=== PATIENT | male | born 1955 | race Caucasian/White ===

== ENCOUNTER 2016-03-19 18:12 | Outpatient (CLI) | payer OTHER | END 2016-03-19 18:13 | disposition home or self-care (01) | DX: M79.652 Pain in left thigh (principal); M79.661 Pain in right lower leg ==

== ENCOUNTER 2017-09-27 07:28 | Outpatient (CLI) | payer OTHER ==
--- NOTE | 2017-09-27 08:41 | CT Report ---
Procedure Date: 09/27/2017 Accession Number: [id number] / [id number] Procedure: CT - Chest/Lung Screen Low Dose W/O CPT Code: FULL RESULT: EXAM CT LUNG SCREEN EXAM DATE: 09/27/2017 8:19 AM. HISTORY: 62 [id number] patient with [id number] smoking history. Currently smoking: Yes. COMPARISON: None.. TECHNIQUE: CT examination of the entire thorax without contrast was performed using low-dose technique. Thin section coronal, axial, sagittal and MIP axial images were obtained. In accordance with CT protocol optimization, one or more of the following dose reduction techniques were utilized for this exam: automated exposure control, adjustment of mA and/or KV based on patient size, or use of iterative reconstructive technique. FINDINGS: Nodules: Right upper lobe: None. Right middle lobe: None. Right lower lobe: None. Left upper lobe: 2 mm, image 96. Left lower lobe: None. Emphysema: Upper lobe predominant paraseptal and centrilobular types. Pleura: Unremarkable. Aorta: Atherosclerotic. Mediastinum: None. Coronary calcifications: None. Other pulmonary findings: Right lower lobe scar. Other extrapulmonary findings: None. IMPRESSION: Lung-RADS ASSESSMENT CATEGORY: 2 - Nodules with a very low likelyhood of becoming a clinically active cancer due to size or lack of growth. RECOMMENDATION: Continue annual screening with low-dose CT in 12 months. RADIA
== END 2017-09-27 07:29 | disposition home or self-care (01) ==
LOC: DI 07:28
PROVIDERS: ATTEND Physician Assistant
DX: Z12.2 Encounter for screening for malignant neoplasm of respiratory organs (principal); R91.8 Other nonspecific abnormal finding of lung field; F17.210 Nicotine dependence, cigarettes, uncomplicated; I70.0 Atherosclerosis of aorta; Z82.49 Family history of ischemic heart disease and other diseases of the circulatory system
CPT/HCPCS: 76706; G0297

== ENCOUNTER 2017-09-27 07:32 | Outpatient (CLI) | payer OTHER ==
--- NOTE | 2017-09-27 08:16 | Ultrasound Report ---
Procedure Date: 09/27/2017 Accession Number: [id number] / [id number] Procedure: US - Aorta Screening CPT Code: FULL RESULT: EXAM: Aorta Screening DATE: 09/27/2017 8:03 AM CLINICAL HISTORY: 62-year-old male with a 75 pack-year smoking history who is an ongoing smoker. COMPARISON: None. TECHNIQUE: Real-time sonographic imaging of retroperitoneal vascular structures, including color-flow, was performed by the ticker installer. Multiple outside dealer sales representative static images were saved for review. FINDINGS: Aorta: The abdominal aorta was adequately visualized. No evidence for abdominal aortic aneurysm. The aorta has an irregular wall with atherosclerotic changes throughout. The aorta measures up to 2.4 cm in sagittal plane in the proximal abdominal portion, 2.0 x 2.6 cm in transverse in the midabdomen and 1.9 x 2.3 cm in the distal abdomen. Iliac Vessels: The right common iliac artery measures 1.1 x 1.2 cm in transverse plane in the left common iliac artery measures 0.9 x 0.9 cm in transverse plane. Other: None. IMPRESSION: Extensive abdominal atherosclerosis without evidence of aneurysm. RADIA
== END 2017-09-27 07:33 | disposition home or self-care (01) ==
LOC: DI 07:32
PROVIDERS: ATTEND Physician Assistant
DX: I70.0 Atherosclerosis of aorta (principal); Z82.49 Family history of ischemic heart disease and other diseases of the circulatory system
CPT/HCPCS: 76706

== ENCOUNTER 2018-10-04 16:17 | Outpatient (CLI) | payer OTHER ==
--- NOTE | 2018-10-05 13:04 | XRAY Report ---
Reason: OTHER SPECIFIED DISORDER TENDON,RT SHOULDER Procedure Date: 10/04/2018 Accession Number: [id number] / [id number] Procedure: XR - Shoulder 3 View RT CPT Code: FULL RESULT: EXAM: RIGHT SHOULDER RADIOGRAPHY EXAM DATE: 10/04/2018 04:37 PM. CLINICAL HISTORY: Worsening shoulder pain after injury for 3 months COMPARISON: None. TECHNIQUE: 3 views. FINDINGS: Bones: Normal. No fracture or bone lesion. Joints: Normal alignment of the glenohumeral and acromioclavicular joints. Mild glenohumeral and moderate acromioclavicular joint space narrowing with osteophytes. Soft tissues: The visualized hemithorax is unremarkable. No soft tissue swelling. IMPRESSION: 1. Normal alignment of the right shoulder without fracture or dislocation. 2. Moderate acromioclavicular mild glenohumeral degenerative arthritis. RADIA
== END 2018-10-04 16:18 | disposition home or self-care (01) ==
LOC: DI 16:17
PROVIDERS: ATTEND Physician Assistant
DX: M19.011 Primary osteoarthritis, right shoulder (principal)

== ENCOUNTER 2019-01-19 22:27 | Emergency (ER) | payer OTHER ==
--- NOTE | 2019-01-19 22:35 | ED Physician Documentation ---
PD HPI CHEST PAIN - Stated complaint Stated Complaint: CP,SOA - Chief complaint Chief Complaint: Cardiac - History obtained from History obtained from: Patient - History of Present Illness Timing - onset: Today Timing - onset during: Light activity Timing - duration: Hours (1-2) Timing - details: Abrupt onset Quality: Other ("Uncomfortable") Location: Substernal Improved by: Rest Associated symptoms: Diaphoresis, Feeling faint / dizzy. No: Shortness of air, Nausea, Vomiting, Palpitations, Cough Similar symptoms before: Work up / diagnostics (20 years ago) Recently seen: Not recently seen - Additional information Additional information: This is a 63-year-old man who presents with complaints that he got up around noon today get ready and just to enjoy the day.He took a shower and as he was toweling off he just felt really faint so he sat down on the toilet for a couple minutes then he was not really feeling any better so he went and laid down on the bed. After a while the symptoms resolved and he got up and started getting ready again but he pretty much immediately had laid back down. He said it took him a couple hours for things to kind of pass in him to be able to get up and get on with his day. He is continued to feel very fatigued and short of breath since that time and he just feels "off". He reports an uncomfortable sensation in the chest area that he is related to anxiety. 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 While the symptoms were going on this morning he did get kind of sweaty but he did not feel dizzy. Denied headache or nausea. No chest pain or palpitations. Did not feel short of breath at the time for have any vomiting. There were not visual changes and he had no numbness or tingling into the arms or legs. He said about 20 years ago he had a similar episode where he was standing waiting at a counter for them to make a sandwich and he just blacked out. That time he was worked up even had an angiogram showed minimal blockages. He has been told that he has calcifications in his aorta but no aneurysm. 2 days ago he had some lower abdominal "burning" type pain in the suprapubic and left lower abdomen. Did not really ever have any diarrhea and it has resolved. He did eat some [place]uv[place] prior to the onset of those symptoms. Patient did not eat anything this morning which is not unusual for him. He did eat something around 7:00 tonight. Denies dysuria. He is a smoker but denies use of alcohol. Does take a thyroid supplement and cholesterol medicine. No blood pressure medications in fact states that his blood pressure typically runs on the lower side in the low to mid 100s systolic.He is here with his daughter. Family history is significant for heart stents in the brother and sister. His father had a stroke. Review of Systems Constitutional: denies: Fever Eyes: denies: Loss of vision Ears: denies: Loss of hearing Nose: denies: Congestion Throat: denies: Sore throat Cardiac: reports: Chest pain / pressure. denies: Palpitations Respiratory: reports: Dyspnea. denies: Cough GI: reports: Abdominal Pain. denies: Nausea, Vomiting, Diarrhea : denies: Dysuria Musculoskeletal: denies: Neck pain, Back pain Neurologic: reports: Generalized weakness, Near syncope. denies: Focal weakness, Syncope, Confused, Altered mental status, Headache Psychiatric: reports: Anxiety Endocrine: reports: Other (Patient does take a thyroid supplement). denies: Polyuria PD PAST MEDICAL HISTORY - Past Medical History Cardiovascular: None Respiratory: None Endocrine/Autoimmune: HyPOthyroidism GI: GERD : None HEENT: None Psych: None Musculoskeletal: None Derm: None - Past Surgical History Past Surgical History: Yes General: Appendectomy Ortho: Arthroscopic surgery, Other HEENT: Tonsil/Adenoidectomy - Present Medications Home Medications: Ambulatory Orders Medication Instructions Recorded Confirmed Citalopram [CeleXA] 10 mg ORAL DAILY 01/02/14 11/12/14 Levothyroxine [Synthroid] 75 mcg PO QDAC 06/12/14 11/12/14 - Allergies Allergies/Adverse Reactions: Allergies Allergy/AdvReac Type Severity Reaction Status Date / Time No Known Drug Allergies Allergy Verified 11/08/14 10:24 - Social History Does the pt smoke?: Yes Smoking Status: Current every day smoker Does the pt drink ETOH?: No Does the pt have substance abuse?: No - Immunizations Immunizations are current?: No PD ED PE NORMAL - Vitals Vital signs reviewed: Yes - General General: Alert and oriented X 3, No acute distress, Well developed/nourished, Other (Thin 63-year-old man who is in no acute distress) - HEENT HEENT: Atraumatic, PERRL, Moist mucous membranes, Pharynx benign (Status post tonsillectomy) - Neck Neck: Supple, no meningeal sign, No adenopathy, Thyroid normal, No JVD - Cardiac Cardiac: RRR, No murmur, No gallop, No rub, Strong equal pulses - Respiratory Respiratory: No respiratory distress, Clear bilaterally - Abdomen Abdomen: Normal bowel sounds, Soft, Non tender, Non distended, No organomegaly, Other (No abdominal bruit. No palpable pulsatile mass in the abdomen and femoral pulses are symmetrical.) - Derm Derm: Normal color, Warm and dry, No rash - Extremities Extremities: No edema - Neuro Neuro: Alert and oriented X 3, No motor deficit, No sensory deficit, Normal speech - Psych Psych: Normal mood, Normal affect Results - Vitals Vitals: Vital Signs - 24 hr 01/19/19 01/19/19 01/20/19 22:31 23:21 00:40 Temperature 36.3 C L Heart Rate 66 84 64 Respiratory 18 20 17 Rate Blood Pressure 144/87 H 124/76 129/90 H O2 Saturation 98 96 99 01/20/19 01/20/19 01:30 03:10 Temperature 36.4 C L Heart Rate 63 64 Respiratory 15 16 Rate Blood Pressure 138/94 H 129/91 H O2 Saturation 98 99 Oxygen O2 Source Room air - EKG (time done) 2234 Rate: Rate (enter#) (60) Rhythm: NSR Intervals: Normal CO. No: Wide QRS Ischemia: Non specific changes Compare to prior EKG: Old EKG unavailable 0232 Rate: Rate (enter#) (60) Rhythm: NSR, Other (PACs) Intervals: Normal CO. No: Wide QRS Ischemia: Non specific changes Compare to prior EKG: Unchanged from prior EKG (tonight) - Labs Labs: Laboratory Tests 01/19/19 01/19/19 01/19/19 21:41 21:41 21:41 WBC 8.5 RBC 5.14 Hgb 16.1 Hct 47.8 MCV 93.0 MCH 31.3 H MCHC 33.7 RDW 13.4 Plt Count 249 MPV 10.0 Neut # (Auto) 4.6 Lymph # (Auto) 2.8 [place] # (Auto) 0.8 Eos # (Auto) 0.2 Baso # (Auto) 0.1 Absolute Nucleated RBC 0.00 Nucleated RBC % 0.0 Sodium 142 Potassium 3.4 L Chloride 107 Carbon Dioxide 29 Anion Gap 6.0 BUN 19 Creatinine 0.8 Estimated GFR (MDRD) 98 Glucose 97 Calcium 9.0 Total Bilirubin 0.8 AST 20 ALT 23 Alkaline Phosphatase 52 Troponin I High Sens < 2.3 L Total Protein 7.3 Albumin 4.0 Globulin 3.3 Albumin/Globulin Ratio 1.2 Lipase 30 01/20/19 01:31 WBC RBC Hgb Hct MCV MCH MCHC RDW Plt Count MPV Neut # (Auto) Lymph # (Auto) [place] # (Auto) Eos # (Auto) Baso # (Auto) Absolute Nucleated RBC Nucleated RBC % Sodium Potassium Chloride Carbon Dioxide Anion Gap BUN Creatinine Estimated GFR (MDRD) Glucose Calcium Total Bilirubin AST ALT Alkaline Phosphatase Troponin I High Sens 3.1 Total Protein Albumin Globulin Albumin/Globulin Ratio Lipase - Rads (name of study) CXR Radiology: EMP read contemporaneously (Neg acute), See rad report PD MEDICAL DECISION MAKING - ED course Complexity details: reviewed results, re-evaluated patient, d/w patient ED course: The patient's EKG does not have acute ischemic changes. The initial troponin is normal. Other labs essentially normal. 1 view chest is clear. Results were discussed with the patient and I requested that he stay for a 3-hour troponin since he was having some chest discomfort even as we were talking in gathering history. He really wants to go out and smoke a cigarette which I have declined permission for him to do. He was offered something to help with his anxiety but he has declined that. Plan for discharge and outpatient follow-up if the 3- hour troponin is normal. The repeat troponin was 3.1. Patient will be discharged with outpatient follow-up. His repeat EKG does not show any acute changes. Departure - Departure Disposition: 01 Home, Self Care Clinical Impression: Atypical chest pain, Near syncope Condition: Good Instructions: ED Chest Pain Atypical Unkn Cause, ED Near Syncope Unkn Follow-Up: Lisa Doll PA [Primary Care Provider] - Comments: Avoid strenuous activity for the weekend. Make sure that you are drinking plenty of water. If you experience this again I would recommend that you check your pulse rate and if you have access to a blood pressure monitor to get a blood pressure reading. Return to the emergency department immediately if you pass out, have chest pain especially if it is associated with shortness of breath, sweatiness or nausea and vomiting. Follow-up with your primary care provider for reevaluation if you experience the symptoms again. Discharge Date/Time: 01/20/19 03:17
[2019-01-19 22:44] LABS: BASOPHILS # (AUTO) 0.1 10^3/uL (0.0-0.1); BASOPHILS % (AUTO) 1.1 %; EOSINOPHILS # (AUTO) 0.2 10^3/uL (0.0-0.7); EOSINOPHILS % (AUTO) 1.8 %; HGB - HEMOGLOBIN 16.1 g/dL (14.0-18.0); LYMPHOCYTES # (AUTO) 2.8 10^3/uL (1.5-3.5); LYMPHOCYTES % (AUTO) 32.8 %; MEAN CORPUSCULAR HEMOGLOBIN 31.3 pg (27.0-31.0); MEAN CORPUSCULAR HGB CONC 33.7 g/dL (32.0-36.0); MONOCYTES # (AUTO) 0.8 10^3/uL (0.0-1.0); MONOCYTES % (AUTO) 9.6 %; NEUTROPHILS # (AUTO) 4.6 10^3/uL (1.5-6.6); NEUTROPHILS % (AUTO) 54.5 %; PLT - PLATELET COUNT 249 10^3/uL (130-450); RED BLOOD COUNT 5.14 10^6/uL (4.70-6.10); RED CELL DISTRIBUTION WIDTH 13.4 % (12.0-15.0); WHITE BLOOD COUNT 8.5 x10^3/uL (4.8-10.8)
[2019-01-19 23:02] LABS: ALBUMIN/GLOBULIN RATIO 1.2 (1.0-2.2); BILIRUBIN,TOTAL 0.8 mg/dL (0.2-1.0); CREATININE 0.8 mg/dL (0.6-1.2); TOTAL PROTEIN 7.3 g/dL (6.7-8.2)
[2019-01-19] MEDS ORDERED: ASPIRIN CHEW 81 MG TABLET PO STA (23:11)
--- NOTE | 2019-01-19 23:37 | XRAY Report ---
Reason: chest pain Procedure Date: 01/19/2019 Accession Number: [id number] / [id number] Procedure: XR - Chest 1 View X-Ray CPT Code: 36340 Final Report FULL RESULT: EXAM: CHEST RADIOGRAPHY EXAM DATE: 01/19/2019 11:17 PM. CLINICAL HISTORY: Chest pain. COMPARISON: CHEST 2 VIEW PA/LAT 01/02/2014 7:17 PM CHEST SCREEN LOW DOSE W/O 09/27/2017 8:18 AM. TECHNIQUE: 1 view. FINDINGS: Atherosclerotic plaque calcifications are seen in the aorta. The mediastinal and cardiac silhouettes are normal. The lungs are free of focal consolidation. There is no pleural effusion or pneumothorax. A lower thoracic levoscoliosis and compensatory thoracolumbar dextroscoliosis are seen. IMPRESSION: No focal consolidation. RADIA
[2019-01-20 03:16] VITALS: BP 129/91
== END 2019-01-20 03:17 | disposition home or self-care (01) ==
LOC: ED 22:27
DX: R07.89 Other chest pain (principal); R55 Syncope and collapse; E03.9 Hypothyroidism, unspecified; F41.9 Anxiety disorder, unspecified; F17.210 Nicotine dependence, cigarettes, uncomplicated
CPT/HCPCS: 36415; 71045; 80053; 83690; 84484; 85025; 93005; 99284; A9270

== ENCOUNTER 2019-03-26 14:03 | Outpatient (CLI) | payer OTHER ==
--- NOTE | 2019-03-27 14:05 | XRAY Report ---
Reason: M54.5 LOW BACK PAIN Procedure Date: 03/26/2019 Accession Number: [id number] / [id number] Procedure: XRS - Lumbar Spine 2 View CPT Code: Final Report FULL RESULT: EXAM: LUMBOSACRAL SPINE RADIOGRAPHY EXAM DATE: 03/26/2019 02:29 PM. CLINICAL HISTORY: M54. 5 LOW BACK PAIN. COMPARISONS: 06/12/2010 8:57 AM. TECHNIQUE: 3 views. FINDINGS: Alignment: Dextroscoliosis of the upper lumbar spine. Grade 1 left lateral listhesis of L1 on L2. Bones: Five [id number]-[id number] lumbar vertebral bodies are present. No fractures or bone lesions. Disks: Moderate degenerative disk disease at L1-L2, L2-L3 and L5-S1. Facets: No degenerative changes. Sacroiliac Joints: Unremarkable. Soft Tissues: Normal. The visualized bowel gas pattern is normal. IMPRESSION: 1. Dextroscoliosis of the upper lumbar spine. Grade 1 left lateral listhesis of L1 on L2. 2. Moderate degenerative disk disease at L1-L2, L2-L3 and L5-S1. RADIA
== END 2019-03-26 14:04 | disposition home or self-care (01) ==
LOC: DI.S 14:03
PROVIDERS: ATTEND Registered Nurse
DX: M51.36 Other intervertebral disc degeneration, lumbar region (principal); M51.37 Other intervertebral disc degeneration, lumbosacral region; M41.9 Scoliosis, unspecified; M43.16 Spondylolisthesis, lumbar region
CPT/HCPCS: 72100

== ENCOUNTER 2020-05-27 08:35 | Outpatient (CLI) | payer MEDICARE ==
--- NOTE | 2020-05-27 16:41 | CT Report ---
PROCEDURE: Low Dose Lung Cancer Screen INDICATIONS: CURRENT SMOKER TECHNIQUE: Noncontrast low-dose 5 mm thick sections acquired from the pulmonary apices to the posterior costophr enic angles. 7 mm thick coronal and sagittal MIP reformats were then acquired. For radiation dose r eduction, the following was used: automated exposure control, adjustment of mA and/or kV according t o patient size. COMPARISON: None. FINDINGS: Image quality: Excellent. Lungs and pleura: Mediastinum: Heart size is normal. There is mild coronary artery calcification centrally. No perica rdial effusion. No mediastinal adenopathy by size criteria. Thoracic aorta and central pulmonary ar teries are normal in size. Esophagus is normal in caliber. No hiatal hernia. Bones and chest wall: No suspicious bony lesions. No vertebral body compression fractures. No axil isabelle or supraclavicular adenopathy by size criteria. The thyroid is normal in size. Abdomen: Visualized upper abdomen solid organs and bowel loops appear normal in the absence of contr ast. IMPRESSION: No evidence of early manifestation of lung carcinoma. Lung RADS category 1, but there is centrilobula r emphysema indicating long-standing smoking history. Mild coronary artery calcification incidentally noted centrally. Lung RADS category 1, follow-up noncontrast low-dose CT scanning is recommended in one year. Reviewed by: Jeremy Hurley MD on 05/27/2020 4:39 PM PDT Approved by: Jeremy Hurley MD on 05/27/2020 4:39 PM PDT Station ID: [id number]
== END 2020-05-27 08:36 | disposition home or self-care (01) ==
LOC: DI 08:35
PROVIDERS: ATTEND Registered Nurse
DX: Z12.2 Encounter for screening for malignant neoplasm of respiratory organs (principal); J43.2 Centrilobular emphysema; F17.210 Nicotine dependence, cigarettes, uncomplicated

== ENCOUNTER 2021-04-22 16:18 | Outpatient (CLI) | payer MEDICARE ==
--- NOTE | 2021-04-22 17:13 | XRAY Report ---
PROCEDURE: Chest 2 View X-Ray INDICATIONS: COUGH TECHNIQUE: 2 view(s) of the chest. COMPARISON: Chest 1 view, 01/19/2019. FINDINGS: Surgical changes and devices: None. Lungs and pleura: No pleural effusions or pneumothorax. Lungs are clear. Mediastinum: Mediastinal contours are normal. Heart size is normal. Bones and chest wall: There is pectus excavatum. No suspicious bony abnormalities. Soft tissues shayy ear unremarkable. IMPRESSION: 1. No acute cardiopulmonary disease. 2. Pectus excavatum. Reviewed by: Kendra Lopez MD on 04/22/2021 5:12 PM PST Approved by: Kendra Lopez MD on 04/22/2021 5:12 PM PST Station ID: [id number]
== END 2021-04-22 16:19 | disposition home or self-care (01) ==
LOC: DI.S 16:18
PROVIDERS: ATTEND Physician Assistant
DX: R05.9 Cough, unspecified (principal); Q67.6 Pectus excavatum

== ENCOUNTER 2022-02-11 09:41 | Outpatient (CLI) | payer MEDICARE ==
--- NOTE | 2022-02-12 08:28 | CT Report ---
PROCEDURE: Low Dose Lung Cancer Screen INDICATIONS: SCREENING FOR LUNG CA TECHNIQUE: Noncontrast low-dose axial images were acquired from the pulmonary apices to the posterior costophren ic angles. Multiplanar MIP reformats were then reconstructed. For radiation dose reduction, the follo wing was used: automated exposure control, adjustment of mA and/or kV according to patient size. COMPARISON: CT 05/27/2020 FINDINGS: Image quality: Adequate. Lungs and pleura: Mild-moderate emphysema. No large/highly suspicious pulmonary nodule or mass. No p leural effusion. Mediastinum: No pericardial effusion. Coronary calcifications are present. Thoracic aorta and centra l pulmonary arteries are normal in size. Esophagus is normal in caliber. Bones and chest wall: Multilevel degenerative change of the visualized spine. No axillary or suprac lavicular adenopathy by size criteria. Abdomen: Visualized upper abdomen solid organs and bowel loops appear unremarkable in the absence of contrast. IMPRESSION: Lung RADS 1- benign. Recommendation: Continue annual screening with low-dose noncontrast chest CT in 12 months. Reviewed by: Marcos Vazquez MD on 02/12/2022 8:27 AM PST Approved by: Marcos Vazquez MD on 02/12/2022 8:27 AM PST Station ID: [id number]
== END 2022-02-11 09:42 | disposition home or self-care (01) ==
LOC: DI 09:41
PROVIDERS: ATTEND Registered Nurse
DX: Z12.2 Encounter for screening for malignant neoplasm of respiratory organs (principal); J43.9 Emphysema, unspecified; F17.210 Nicotine dependence, cigarettes, uncomplicated

== ENCOUNTER 2023-05-30 08:00 | Outpatient (CLI) | payer MEDICARE ==
--- NOTE | 2023-05-30 14:42 | XRAY Report ---
PROCEDURE: Chest 2V INDICATIONS: DYSPNEA ON EXERTION TECHNIQUE: 2 views of the chest were acquired. COMPARISON: Chest radiograph on February 19, 2022. FINDINGS: Surgical changes and devices: None. Lungs and pleura: No pleural effusions or pneumothorax. Subtle left lower lobe patchy consolidation. Mediastinum: Mediastinal contours appear normal. Heart size is normal. Bones and chest wall: No suspicious bony lesions. Overlying soft tissues appear unremarkable. Pec tus excavatum. IMPRESSION: 1.Subtle left lower lobe patchy consolidation which may reflect atelectasis, aspiration and/or pneumo tawanna, in the appropriate clinical context. 2.Pectus excavatum. Reviewed by: Natalia Jeronimo MD on 05/30/2023 2:41 PM PDT Approved by: Natalia Jeronimo MD on 05/30/2023 2:41 PM PDT Station ID: [id number]
== END 2023-05-30 23:59 | disposition home or self-care (01) ==
LOC: DI.S 08:00
PROVIDERS: ATTEND Emergency Medicine
DX: R91.8 Other nonspecific abnormal finding of lung field (principal); Q67.6 Pectus excavatum

== ENCOUNTER 2023-07-26 07:13 | Outpatient (CLI) | payer MEDICARE ==
--- NOTE | 2023-07-26 21:22 | CT Report ---
PROCEDURE: Lung Cancer Screen INDICATIONS: TOBACCO USER TECHNIQUE: A CT scan of the chest was performed. Intravenous contrast media was not administered. Images were re corded and evaluated at appropriate window settings. Reformats: axial MIP of the chest, coronal and s agittal. For radiation dose reduction, the following was used: automated exposure control, adjustment of mA and/or kV according to patient size. COMPARISON: 02/11/2022, 05/27/2020, 09/27/2017. FINDINGS: Image quality: Diagnostic. Prior cancer history: None Lungs and pleura: No pleural effusions. No pneumothorax. Mild to moderate paraseptal and centrilobul ar emphysema. No suspicious pulmonary nodules which require follow up. Mediastinum: Heart size is normal. No pericardial effusion. No large vessel abnormality. No mediastin al adenopathy by size criteria. Chest wall and lower neck: Thyroid is unremarkable. No axillary or supraclavicular adenopathy by size . Bones: No aggressive osseous abnormality. Upper Abdomen: Unremarkable. IMPRESSION: Lung RAD: 1 - Negative. Recommendation: Continue annual screening in 12 Months with LDCT Non-Lung Significant Findings: None. Reviewed by: Gris Acosta MD, PhD on 07/26/2023 8:21 PM [email or web address] Approved by: Gris Acosta MD, PhD on 07/26/2023 8:21 PM AKDT Station ID: [id number]
== END 2023-07-26 07:14 | disposition home or self-care (01) ==
LOC: DI 07:13
PROVIDERS: ATTEND Registered Nurse
DX: Z12.2 Encounter for screening for malignant neoplasm of respiratory organs (principal); Z72.0 Tobacco use